=== PATIENT | male | born 2000 | race Two or more races ===

== ENCOUNTER 2019-01-22 09:49 | Outpatient (CLI) | payer OTHER | END 2019-01-22 10:43 | disposition home or self-care (01) | LOC: SONOGRAMA 09:49 → MAMO-SONO 10:15 → SONOGRAMA 10:43 | DX: M54.17 Radiculopathy, lumbosacral region (principal) ==

== ENCOUNTER 2019-06-25 08:10 | Outpatient (CLI) | payer OTHER | END 2019-06-25 08:27 | disposition home or self-care (01) | LOC: SONOGRAMA 08:10 → MAMO-SONO 08:15 → SONOGRAMA 08:27 | DX: R94.5 Abnormal results of liver function studies (principal) ==

== ENCOUNTER 2021-09-13 21:18 | Emergency (ER) | payer OTHER ==
[~2021-09-13] VITALS: Ht 180.3 cm; Wt 68.0 kg
[2021-09-13] MEDS ORDERED: CIPROFLOXACIN500 MG PO (21:55)
[2021-09-14] MEDS ORDERED: KETO10TA2 PO (02:05)
== END 2021-09-14 04:02 | disposition home or self-care (01) ==
LOC: ER 21:18
DX: S52.502A Unspecified fracture of the lower end of left radius, initial encounter for closed fracture (principal); X58.XXXA Exposure to other specified factors, initial encounter; Y93.66 Activity, soccer; Y92.9 Unspecified place or not applicable

== ENCOUNTER 2021-09-23 08:23 | Outpatient (CLI) | payer OTHER ==
[~2021-09-23 08:23] MED LIST: CIPROFLOXACIN500 MG PO; KETO10TA2 PO
== END 2021-09-23 08:34 | disposition home or self-care (01) ==
LOC: RAD 08:23
PROVIDERS: ATTEND Orthopaedic Surgery
DX: S52.502A Unspecified fracture of the lower end of left radius, initial encounter for closed fracture (principal)

== ENCOUNTER 2023-10-05 14:28 | Outpatient (CLI) | payer OTHER | END 2023-10-05 14:49 | disposition home or self-care (01) | LOC: MRI 14:28 | PROVIDERS: ATTEND Orthopaedic Surgery | DX: S53.491A Other sprain of right elbow, initial encounter (principal); X58.XXXA Exposure to other specified factors, initial encounter; Y93.9 Activity, unspecified; Y92.9 Unspecified place or not applicable; Y99.9 Unspecified external cause status | CPT/HCPCS: 73218 ==